=== PATIENT | female | born 1995 | race African-American/Black ===

== ENCOUNTER 2020-11-15 03:48 | Emergency (ER) | payer OTHER ==
[2020-11-15 03:53] VITALS: TEMP 98.3; BMI 25.7
[2020-11-15] MEDS ORDERED: METOCLOPRAMIDE HCL INJECTION 10 MG/2 ML VIAL IVPUSH ONE (04:17)
[2020-11-15] MEDS ORDERED: SODIUM CHLORIDE 0.9% 500 ML INFUS.BAG IV ONE (04:17)
[2020-11-15] MEDS ORDERED: METOCLOPRAMIDE HCL INJECTION 10 MG/2 ML VIAL ONE (04:20)
[2020-11-15 04:31] LABS: BASO % 0.4 % (0-2.0); HEMATOCRIT 39.8 % (32.4-45.2); HEMOGLOBIN 13.2 GM/dL (10.7-15.3); LYMPH % 12.5 % (8-40); MCH 30.3 pg (25.7-33.7); MCHC 33.1 g/dl (32.0-36.0); MEAN CELL VOLUME 91.7 fl (80-96); MEAN PLT VOLUME 8.1 fl (7.5-11.1); MONO % 5.9 % (3.8-10.2); NEUT % 81.2 % (42.8-82.8); PLATELET COUNT 238 K/MM3 (134-434); RBC 4.34 M/mm3 (3.60-5.2); RDW 13.9 % (11.6-15.6); WHITE BLOOD COUNT 9.4 K/mm3 (4.0-10.0)
[2020-11-15 04:50] LABS: POTASSIUM 3.4 mmol/L (3.5-5.1)
[2020-11-15 04:52] LABS: CALCIUM 9.7 mg/dL (8.5-10.1)
[2020-11-15 04:53] LABS: ALBUMIN 4.2 g/dl (3.4-5.0)
[2020-11-15 04:56] LABS: CREATININE 0.6 mg/dL (0.55-1.3)
[2020-11-15 04:57] LABS: BILIRUBIN,TOTAL 0.4 mg/dL (0.2-1); TOT PROT 7.6 g/dl (6.4-8.2)
[2020-11-15 06:23] LABS: URINE APPEARANCE CLEAR; URINE BILIRUBIN NEGATIVE (NEGATIVE); URINE COLOR YELLOW; URINE GLUCOSE (UA) NEGATIVE (NEGATIVE); URINE KETONE 3+ (NEGATIVE); URINE LEUK ESTERASE NEGATIVE (NEGATIVE); URINE NITRITE NEGATIVE (NEGATIVE); URINE PROTEIN NEGATIVE (NEGATIVE); URINE UROBILINOGEN 0.2 mg/dL (0.2-1.0)
[2020-11-15 06:31] VITALS: BP 98/58; PULSE 66
== END 2020-11-15 06:31 | disposition home or self-care (01) ==
LOC: JER 03:48
PROC: 3E033GC Introduction of Other Therapeutic Substance into Peripheral Vein, Percutaneous Approach (ICD-10-PCS; principal; 2020-11-15)
DX: O21.1 Hyperemesis gravidarum with metabolic disturbance (principal); Z3A.01 Less than 8 weeks gestation of pregnancy
CPT/HCPCS: 36415; 80053; 81003; 82962; 83690; 84703; 85025; 86850; 86900; 86901; 87086; 99284-25